=== PATIENT | female | born 1940 ===

== ENCOUNTER → 2016-11-11 | Outpatient (CLI) | payer MEDICARE, OTHER ==
[~2016-11-11] VITALS: Ht 149.9 cm; Wt 50.0 kg
[~2016-11-11] MED LIST: ASPI-556 PO; ATOR10TA84 PO; FURO20 PO; LOSA50TA37 PO; METO-325 PO; TERA2 PO
[2016-11-11 12:44] VITALS: BP 159/64
== END | disposition home or self-care (01) ==
LOC: SRCNTR 12:34
PROVIDERS: ATTEND Internal Medicine
DX: I10 Essential (primary) hypertension (principal); E78.5 Hyperlipidemia, unspecified; J44.1 Chronic obstructive pulmonary disease with (acute) exacerbation; R91.8 Other nonspecific abnormal finding of lung field
CPT/HCPCS: G0463

== ENCOUNTER → 2017-02-07 | Outpatient (CLI) | payer MEDICARE, OTHER ==
[~2017-02-07] VITALS: Ht 149.9 cm; Wt 50.0 kg
[2017-02-07 13:06] VITALS: BP 134/78
== END | disposition home or self-care (01) ==
LOC: SRCNTR 12:37
PROVIDERS: ATTEND Internal Medicine
DX: J44.9 Chronic obstructive pulmonary disease, unspecified (principal); I10 Essential (primary) hypertension; E78.5 Hyperlipidemia, unspecified
CPT/HCPCS: G0463